=== PATIENT | female | born 1995 | race Caucasian/White ===

== ENCOUNTER 2018-02-16 19:38 | Emergency (ER) | payer MEDICAID, SELFPAY ==
[2018-02-16 19:39] VITALS: BP 148/87; PULSE 89; RESP 20; TEMP 37.1; O2SAT 97; BMI 24.9
[2018-02-16 19:44] VITALS: TEMP 37.1
[2018-02-16 19:50] VITALS: BP 129/85; PULSE 78; RESP 18; O2SAT 99
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
[2018-02-16] MEDS: fentaNYL 100 MCG/2 ML Ampul 50 MCG IV (20:05)
[2018-02-16] MEDS: Ondansetron 4 MG/2 ML Vial IV (20:05)
[2018-02-16 20:06] VITALS: BP 120/83; PULSE 52; RESP 12; O2SAT 100
[2018-02-16 20:09] VITALS: BP 120/83; PULSE 60; RESP 14; O2SAT 99
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
[2018-02-16 20:33] VITALS: BP 120/80; PULSE 60; RESP 14; O2SAT 99
== END 2018-02-16 20:30 | disposition short-term general hospital (02) ==
PROVIDERS: Emergency Provider Emergency Medicine; Family Provider Family Medicine; PCP Family Medicine
DX: S42.411A Displaced simple supracondylar fracture without intercondylar fracture of right humerus, initial encounter for closed fracture (principal); V59.9XXA Occupant (driver) (passenger) of pick-up truck or van injured in unspecified traffic accident, initial encounter; Y93.89 Activity, other specified; Y92.9 Unspecified place or not applicable
CPT/HCPCS: 71045; 72170; 73070; 73120; 96374; 96375; 99285; J7030; A4216; J2405

== ENCOUNTER → 2018-03-22 17:05 | Outpatient (CLI) | payer MEDICAID, SELFPAY ==
[2018-03-22 18:54] LABS: Chlamydia Trachomatis by PCR Negative (Negative); Neisserai gonorrhoeae by PCR Negative (Negative); Probe Check PASS; Sample Adequacy Control PASS; Specimen Processing Control PASS
[2018-03-27 17:17] LABS: HPV HC, High Risk Negative (Negative)
== END ==
PROVIDERS: Visit Provider Obstetrics & Gynecology
DX: Z12.4 Encounter for screening for malignant neoplasm of cervix (principal); Z11.3 Encounter for screening for infections with a predominantly sexual mode of transmission
CPT/HCPCS: 87491; 87591; 87624; 88175; G0145

== ENCOUNTER 2018-05-02 11:00 | Outpatient (RCR) | payer MEDICAID, SELFPAY ==
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
--- NOTE | 2018-08-07 13:57 | HP.PTDCSUM ---
HP - PT D/C Summary It has been my pleasure to treat NIKKI ALTAMIRANO under orders from ALISHA CARLISLE, for the diagnosis of CLOSED BICONDYLAR FRCTURE OF DISTAL END OF RIGHT HUMERUS WITH HEALING for a total of 7 visit(s). Discharge Date: Please see the following information for a summary of their discharge status. - Subjective Subjective: Pt reports that she can reach across her body, do her hair etc. - Pain Right Elbow Pain Intensity (Out of 10): Unrated - Overall Improvement % Improvement: 70 - Objective Objective/Function: Pt notes some functional improvement in use of right arm. Still very sensitive to touch over incision. Motion still very limited. 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 Thank you for the referral of this patient. Sincerely, Jhonatan Borges, PT, Cert MDT, OCS
== END 2018-05-02 19:00 | disposition home or self-care (01) ==
LOC: PT 11:00
PROVIDERS: Family Provider Family Medicine; PCP Family Medicine
DX: S42.491D Other displaced fracture of lower end of right humerus, subsequent encounter for fracture with routine healing (principal); M25.621 Stiffness of right elbow, not elsewhere classified
CPT/HCPCS: 97110; 97161

== ENCOUNTER 2018-08-06 11:11 | Emergency (ER) | payer MEDICAID, SELFPAY ==
[2018-08-06 11:12] VITALS: BP 135/79; PULSE 81; RESP 18; TEMP 37.2; O2SAT 99; BMI 27.4
--- NOTE | 2018-08-06 11:41 | ED.VISSUMM ---
- ER Visit Summary Date of Service: 08/06/18 Chief Complaint: Patient is presenting with dental pain. No fever chills no jaw pain this is chronic and recurrent secondary to a and P K2 that she cannot get into see a dentist. Physical Examination: She is found to have a left lower second molar decayed tooth no periapical abscess. No facial edema. Otherwise normal oropharynx with the soft palate. Emergency Department Course and Treatment: Patient was started on clindamycin and given the dental referral sheet. Disposition: Discharge stable condition Impression: Odontalgia This note was generated with [employer] dictation software. It may contain incorrect words, spelling, and punctuation that were not noted in review of the chart prior to signing ED Disposition - Plan for ED Patient: Disposition: Home or Assisted Living Chief Complaint: Dental Instructions: ED Tooth Pain, ED Abscess Dental Prescriptions: Clindamycin [Cleocin] 150 mg PO 4X/DAY #40 cap
--- NOTE | 2018-08-06 11:45 | ED.DCSUM_ITS ---
- ER Visit Summary Date of Service: 08/06/18 Chief Complaint: Patient is presenting with dental pain. No fever chills no jaw pain this is chronic and recurrent secondary to a and P K2 that she cannot get into see a dentist. Physical Examination: She is found to have a left lower second molar decayed tooth no periapical abscess. No facial edema. Otherwise normal oropharynx with the soft palate. Emergency Department Course and Treatment: Patient was started on clindamycin and given the dental referral sheet. Disposition: Discharge stable condition Impression: Odontalgia This note was generated with [employer] dictation software. It may contain incorrect words, spelling, and punctuation that were not noted in review of the chart prior to signing ED Disposition - Plan for ED Patient: Disposition: Home or Assisted Living Chief Complaint: Dental Instructions: ED Tooth Pain, ED Abscess Dental Prescriptions: Clindamycin [Cleocin] 150 mg PO 4X/DAY #40 cap
[2018-08-06] MEDS: Ketorolac 30 MG/ML Syringe IM (12:11)
== END 2018-08-06 12:25 | disposition home or self-care (01) ==
PROVIDERS: Emergency Provider Emergency Medicine; Family Provider Family Medicine; PCP Family Medicine
DX: K02.9 Dental caries, unspecified (principal); Z72.0 Tobacco use
CPT/HCPCS: 96372; 99281

== ENCOUNTER 2018-09-04 13:30 | Outpatient (RCR) | payer MEDICAID, SELFPAY ==
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
--- NOTE | 2018-12-31 11:19 | HP.PTDCNRP_ITS ---
HP - Discharge Summary (1) - Patient Information NIKKI ALTAMIRANO was seen in my office for initial evaluation on 08/27/18. The following Plan of Care was established for this patient: Initial Frequency: 2-3x /Week Initial Duration: 4-6 Weeks - Anticipated Interventions Patient/Client Instruction: Educate patient on: Condition, Plan of Care, Risk Factors, Benefits of Fitness Program For the Purpose of:: To foster healthy habits, To improve decision making, To facilitate caregiver knowledge, To improve self management, To prevent re- injury, To improve ability to perform tasks related to life management, To improve tolerance to ADL's Therapeutic Exercise to Include: Strength training, Power training, Body mechanics, Postural training, Flexibilty training, Passive ROM, Active ROM, Scapular Strength/Stabilization For the Purpose of:: To decrease pain, To decrease swelling/inflammation, To increase ROM, To improve health of tissue, To decrease soft tissue restriction, To increase flexibility/ROM Manual Therapy Techniques to Include: Mobilization, Passive ROM, Functional dry needling, Soft tissue mobilization For the Purpose of:: To decrease pain, To decrease swelling/inflammation, To increase ROM, To improve muscle performance and motor function, To improve health of tissue, To decrease soft tissue restriction, To increase flexibility/ROM IF ES: Yes Cryotherapy (ice pack, ice massage): Yes Thermo therapy (hot pack): Yes For the Purpose of:: To decrease pain, To decrease swelling/inflammation, To increase ROM This patient was last seen in our office 09/11/18. Pertinent comments regarding their Physical therapy will appear below: Pt. was seen for her elbow hypomobility. Pt. attended eval and 2 visits, but did not return afterwrads. Pt. was not been seen in several months and will be DC from PT at this point intime. At this point I will be discontinuing this patient from physical therapy. I would be happy to see this patient again in the future if found appropriate by the physician. Thank you! Kendrick Julian, FLAQUITOT
== END 2018-09-04 19:00 | disposition home or self-care (01) ==
LOC: PT 13:30
PROVIDERS: Family Provider Family Medicine; PCP Family Medicine
DX: S42.491D Other displaced fracture of lower end of right humerus, subsequent encounter for fracture with routine healing (principal)
CPT/HCPCS: 97110; 97140; 97161

== ENCOUNTER → 2018-10-16 09:27 | Outpatient (CLI) | payer MEDICAID, SELFPAY ==
--- NOTE | 2018-10-16 09:44 | CT_ITS ---
STUDY: CT RIGHT ELBOW WITHOUT CONTRAST REASON FOR EXAM: Female, 23 years old. Closed epicondylar fracture of the distal humerus. Surgery 7 months ago. Limited range of motion. RADIATION DOSAGE (If Supplied By Facility): CTDIvol = ( 24.58 ) mGy, DLP = ( 471.43 ) mGycm TECHNIQUE: Transaxial CT imaging of the elbow was performed. Sagittal and coronal images were reconstructed. Individualized dose optimization techniques were used for this CT. COMPARISON: X-ray elbow 02/16/2018. FINDINGS: Minimal residual elbow joint effusion. Proximal radius and ulna intact. Myotendinous structures traversing the elbow appear normal. Normal appearance of the ulnotrochlear articulation. No intra-articular loose body. There is a bridging new bone formation traversing from the posterior margin of the medial femoral condyle towards the lateral margin of the olecranon. The average bone measures approximately 2.5 cm in length followed by 2 bony ossicles measuring 6.3 mm and 7.6 mm respectively. Normal appearance of the radiocapitellar articulation. The anterior humeral line transects the anterior 3rd of the capitellum suggesting persistent posterior displacement secondary to the supracondylar fracture. Supracondylar plate and screw fixation. The surgical construct appears intact. There is complete fusion across the fracture. There is residual deformity of the supracondylar humerus secondary to periosteal new bone formation. CT/Extremity Upper without Contra IMPRESSION: Complete fusion across the supracondylar fracture. The surgical construct appears intact. No intra-articular loose body. There is a bridging new bone formation contiguous with corticated bony ossicles from the posterior medial margin of the medial femoral condyle downward along the medial margin of the olecranon, at the margin of the articulation, potentially limiting range of motion. Electronically Signed: Vlad Del Real MD at 11:15 EDT Tel , Service support ,
== END ==
PROVIDERS: Family Provider Family Medicine; PCP Family Medicine
DX: S42.491D Other displaced fracture of lower end of right humerus, subsequent encounter for fracture with routine healing (principal)
CPT/HCPCS: 73200

== ENCOUNTER 2019-01-23 18:30 | Outpatient (RCR) | payer MEDICAID, SELFPAY ==
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
--- NOTE | 2019-03-18 13:44 | HP.PTDCNRP_ITS ---
HP - Discharge Summary (1) - Patient Information NIKKI ALTAMIRANO was seen in my office for initial evaluation on 12/30/18. The following Plan of Care was established for this patient: Initial Frequency: 3x /Week Initial Duration: 4-6 Weeks - Anticipated Interventions Patient/Client Instruction: Educate patient on: Condition, Plan of Care For the Purpose of:: To increase ROM, To increase tolerance to activity/condit ion/position Therapeutic Exercise to Include: Strength training, Flexibilty training, Passive ROM, Active ROM For the Purpose of:: To decrease pain, To increase ROM, To increase tolerance to activity/condition/position Manual Therapy Techniques to Include: Scar massage, Mobilization For the Purpose of:: To decrease pain, To increase ROM Paraffin bath: Yes For the Purpose of:: To improve nutrient delivery to tissue This patient was last seen in our office 01/23/19. Pertinent comments regarding their Physical therapy will appear below: Pt seen for 5 visits of plan of care. She no showed for her last 4 scheduled visits including recheck. At this point, it has been nearly two months adn I will discontinue due to nonattendance. At this point I will be discontinuing this patient from physical therapy. I wou ld be happy to see this patient again in the future if found appropriate by the physician. Thank you! Zeus Bergman, DPT, OCS, CSCS
== END 2019-01-23 19:00 | disposition home or self-care (01) ==
LOC: PT 18:30
PROVIDERS: Family Provider Family Medicine; PCP Family Medicine
DX: M25.621 Stiffness of right elbow, not elsewhere classified (principal)
CPT/HCPCS: 97110; 97140; 97161; 97530

== ENCOUNTER → 2019-03-04 13:07 | Outpatient (CLI) | payer MEDICAID, SELFPAY ==
[2019-03-04 15:15] LABS: Progesterone Level 2.18 ng/mL (See Comment)
[2019-03-04 15:18] LABS: hCG Titer Quant., Serum < 1 mIU/mL (1-3)
== END ==
PROVIDERS: Visit Provider Obstetrics & Gynecology
DX: Z30.8 Encounter for other contraceptive management (principal)
CPT/HCPCS: 36415; 84144; 84702

== ENCOUNTER 2019-05-24 08:37 | Emergency (ER) | payer MEDICAID, SELFPAY ==
[2019-05-24 08:37] VITALS: BP 122/70; PULSE 88; RESP 20; TEMP 36.6; O2SAT 98; BMI 25.7
--- NOTE | 2019-05-24 09:02 | ED.VIS.DENTA ---
History of Present Illness Chief Complaint: Dental Informant: Patient Onset: Today - around 8-10 hrs Context: Gradual Onset Timing: Continuous Quality: ache Location: right mandibular molar Current Severity: Severe Maximum Severity: Severe Worsened by: eating, drinking Relieved by: - - hasn't tried anything Associated Symptoms: - - no fever, jaw/face swelling Narrative: Patient has decay and a right mandibular molar. She states it is look like this for a while but did not start hurting her until late last night/early this morning. No other symptoms other than pain. Prior similar symptoms: Yes Past Medical History - Allergies and Home Meds Allergies/Adverse Reactions: Allergies hydrocodone [From Vicodin] Allergy (Verified 05/24/19 08:39) Other Primary Care Physician: NOT,DEFINED [Primary Care Provider] - Past Medical History: None Smoking Status: Current every day smoker Drugs: None Review of Systems General: Denies: Chills, Fever ENT: Reports: - - dental pain. Denies: Bilateral ear pain, Rhinorrhea, Sore throat Gastrointestinal: Denies: Nausea, Vomiting Skin: Denies: Rash, Abscess Neurological: Denies: Headache, Weakness, Numbness Physical Exam Vital Signs/Narrative: Vital Signs Temp Pulse Resp BP Pulse Ox 05/24/19 08:37 98 F 88 20 H 122/70 H 98 Inital Vital Signs reviewed: Yes General: Well nourished, Well developed Head: Normocephalic, Atraumatic ENT: Moist mucous membranes, No rhinorrhea, TM's clear Mouth/Throat: Focal dental decay - tooth #35 -- filling intact, lateral half of tooth is missing due to severe decay down to gumline. no bleeding or discharge. tender. no nearby soft tissue abscess. no trismus.. Negative for: Dental abscess Neck: Supple, No lymphadenopathy. Negative for: Anterior submandibular lymphadenopathy Skin: Normal color, No rash, No Trauma Neurological: Alert, Oriented x3, Cranial nerves II-XII grossly intact, Normal Strength, Normal Sensation, Normal Gait Psychological: Normal affect, Normal Mood Diagnostic/Tx/Re-eval - Medical Decision Making Patient given Ultram and ibuprofen and given a prescription for Ultram and amoxicillin. She was given a dental resource list for follow-up. No objective sign of infection at this time. ED Disposition - Plan for ED Patient: Disposition: Home or Assisted Living Diagnosis: Odontalgia, Dental decay Instructions: Dental Pain, Dental Cavity Prescriptions: Amoxicillin 875 mg PO BID #20 tab Prescription Printed traMADol [Ultram] 50 mg PO Q4H PRN PRN 3 Days #16 tab PRN Reason: Pain Prescription Printed Referrals: Dentist,Your [STAFF PHYSICIAN] - As soon as possible (see resource list for providers if you do not already have one)
[2019-05-24] MEDS: Ibuprofen 600 MG Tablet PO (09:17)
[2019-05-24] MEDS: traMADol 50 MG Tablet 100 MG PO (09:18)
== END 2019-05-24 09:20 | disposition home or self-care (01) ==
LOC: ED 09:10
PROVIDERS: Emergency Provider Emergency Medicine
DX: K02.9 Dental caries, unspecified (principal); F17.200 Nicotine dependence, unspecified, uncomplicated
CPT/HCPCS: 99283

== ENCOUNTER 2019-09-11 12:23 | Emergency (ER) | payer MEDICAID, SELFPAY ==
[2019-09-11 12:25] VITALS: BP 129/73; PULSE 78; RESP 17; TEMP 37.1; O2SAT 100; BMI 27.9
--- NOTE | 2019-09-11 12:37 | RAD_ITS ---
STUDY: X-RAY CHEST REASON FOR EXAM: Female, 24 years old. Stabbing pain in right lower chest/abdomen. TECHNIQUE: Frontal and lateral views of the chest. COMPARISON: February 16, 2018 FINDINGS: Stable mild hyperexpansion. There is no demonstrated pleural abnormality. Normal size heart. Normal mediastinum and calos. Normal visualized pulmonary arteries. Normal visualized aortic arch and descending thoracic aorta. Normal visualized thoracic spine. Normal visualized ribs, clavicles, and shoulders. Stable nipple piercings. RAD/Chest PA and Lateral IMPRESSION: No interval change and no acute finding. Electronically Signed: Yayo Segura MD at 13:06 EST , Service support ,
--- NOTE | 2019-09-11 12:38 | ED.DCSUM_ITS ---
History of Present Illness Chief Complaint: Other, Pain/Inj Informant: Patient Onset: Weeks Narrative: Patient presents the emergency department with a right lower chest wall pain. She states is been present for 2 weeks constant and seems to be getting worse. She notes a cough that is also been worsening. Pain is worse with movement and touch. She denies any vomiting diarrhea anorexia or rash. She notes no dysuria but does endorse urinary frequency. No fevers. No known trauma. Known strenuous activity. She states she felt there is most likely a musculoskeletal pain but it has not gone away. She is tried some ibuprofen and heat. She states that she has not contacted her PCP. The reason for her ED visit today is that she was unable to sleep last night due to the pain. Past Medical History - Allergies and Home Meds Allergies/Adverse Reactions: Allergies hydrocodone [From Vicodin] Allergy (Verified 09/11/19 12:25) Other Primary Care Physician: Aysha Latif NP-C [Primary Care Provider] - Smoking Status: Current every day smoker Review of Systems General: Denies: Chills, Fever, Sweats Eyes: Denies: Visual changes - bilaterally, Diplopia ENT: Denies: Rhinorrhea, Sore throat Cardiovascular: Reports: Chest pain. Denies: Palpitations Respiratory: Reports: Cough. Denies: Dyspnea, Dyspnea on exertion Gastrointestinal: Denies: Abdominal pain, Nausea, Vomiting, Diarrhea, Melena, Hematochezia Genitourinary: Reports: Frequency. Denies: Dysuria, Hematuria Musculoskeletal: Denies: Back pain, Extremity Pain Skin: Denies: Rash, Wounds Neurological: Denies: Headache, Weakness, Numbness Physical Exam Vital Signs/Narrative: Vital Signs Temp Pulse Resp BP Pulse Ox 09/11/19 12:25 98.7 F 78 17 129/73 H 100 Inital Vital Signs reviewed: Yes General: Well nourished, Well developed, No Acute Distress Head: Normocephalic, Atraumatic Eyes: Perrl, EOMI ENT: Moist mucous membranes, No rhinorrhea Neck: Supple, Nontender Cardiovascular: Regular rate, Regular rhythm, No murmurs Respiratory: No distress, CTA bilaterally, Chest tenderness - Right lower anterior chest wall tenderness extending towards the mid axillary line. Specifically there are no rashes in this area no posterior rib pain Abdomen: Soft, Nontender, Nondistended, Normal bowel sounds Back: Nontender, Normal Inspection Extremities: Nontender, No edema Skin: Normal color, No rash Neurological: Alert, Oriented x3, Cranial nerves II-XII grossly intact, Normal Strength, Normal Sensation Psychological: Normal affect, Normal Mood Diagnostic/Tx/Re-eval - Medical Decision Making X-ray showed no pneumothorax pleural effusion infiltrate to explain the patient's pain. Ribs did not appear to demonstrate any trauma. Her urine specimen was normal. I believe this is musculoskeletal. It is easily reproducible with palpation and with certain movements. Patient to use some Flexeril and continued anti-inflammatories. Follow-up with primary care if not improved ED Disposition - Plan for ED Patient: Disposition: Home or Assisted Living Diagnosis: Acute chest wall pain Instructions: Chest Wall Strain Prescriptions: cycloBENZAPRine HCl [Flexeril] 10 mg PO TID PRN #15 tab PRN Reason: Muscle Spasm Prescription Printed Naproxen [Naprosyn] 500 mg PO BID #14 tab Prescription Printed Referrals: yAsha Latif, DIRECTOR OF STUDENT FINANCIAL SERVICES-C [Primary Care Provider] - 1 Week if not improving
[2019-09-11 13:02] LABS: Mucous, Urine 0 SEEN /hpf (<or=2+); Red Blood Cells-Urine 0 SEEN /hpf (0-5); White Blood Cells 0 SEEN /hpf (0-5)
[2019-09-11 13:13] LABS: Color, Urine Yellow (Yellow); Glucose, Dipstick Normal (Normal); Internal QC Validated? YES +Cl - CLEAR BKGD; Ketone-Dipstick Negative (Negative); Leukocyte Esterase-Dipstick Negative /ul (Negative); Nitrite-Dipstick Negative (Negative); Occult Blood-Urine Negative /ul (Negative); Pregnancy, Urine Negative Negative; Protein-Dipstick Negative (Negative); Specific Gravity, Urine 1.015 (1.002-1.030); Urine Bilirubin Dipstick Negative (Negative); Urine Clarity Sl. Cloudy (Clear); Urine Urobilinogen Normal (Normal)
[2019-09-11 13:22] LABS: Amorphous Sediment 1+; Bacteria 1+ /hpf (None Seen); Squamous Epithelial Cells - UA 0-5 SEEN /hpf (5-10)
[2019-09-11 14:00] VITALS: PULSE 81; RESP 18; O2SAT 100
== END 2019-09-11 14:01 | disposition home or self-care (01) ==
PROVIDERS: Emergency Provider Emergency Medicine; PCP Nurse Practitioner Family
DX: R07.89 Other chest pain (principal); F17.200 Nicotine dependence, unspecified, uncomplicated
CPT/HCPCS: 71046; 81001; 81025; 99283

== ENCOUNTER → 2020-01-16 13:47 | Outpatient (CLI) | payer MEDICAID, SELFPAY ==
[2020-01-16 17:14] LABS: Chlamydia Trachomatis by PCR Negative (Negative); Neisserai gonorrhoeae by PCR Negative (Negative); Probe Check PASS; Sample Adequacy Control PASS; Specimen Processing Control PASS
[2020-01-21 20:45] LABS: HPV APTIMA, High Risk Positive (Negative); HPV Reflexed? YES, CHARGE PATIENT
== END ==
PROVIDERS: PCP Nurse Practitioner Family; Visit Provider Obstetrics & Gynecology
DX: Z12.4 Encounter for screening for malignant neoplasm of cervix (principal); Z11.3 Encounter for screening for infections with a predominantly sexual mode of transmission
CPT/HCPCS: 87491; 87591; 87624; 88175; G0145

== ENCOUNTER 2020-01-21 07:41 | Day surgery (SDC) | payer MEDICAID, SELFPAY ==
--- NOTE | 2020-01-20 22:55 | HP.PCM_ITS ---
History and Physical Date of Admission: 01/21/20 HISTORY OF PRESENT ILLNESS: On 01/19/2020, Elvia Reed, a 24 year old female 2 0 0 0 2, presented for: -- Inevitable Miscarriage -- U/S shows 8w 3 day IUP without FHTs. Denies any vaginal bleeding. Wants a D and E GUERRERO. Also wants tubal or IUD. ALLERGIES: NKDA MEDICATIONS HISTORY: Current medications prescribed by our practice are: 1. promethazine 12.5 mg tablet, As Directed REVIEW OF SYSTEMS: GENERAL - Denies fever, or chills SKIN - Denies skin changes EYES - Denies visual changes EARS - Denies difficulty hearing NOSE - Denies nasal congestion or bleeding MOUTH - Denies sore throat or difficulty swallowing NECK - Denies pain or swelling RESPIRATORY - Denies shortness of breath or wheezing CARDIOVASCULAR - Denies palpitations or chest pain GASTROINTESTINAL - Denies nausea, vomiting, diarrhea, constipation GENITOURINARY - Denies dysuria, frequency of urination, incontinence of urine MUSCULOSKELETAL - Denies joint or muscle pain NEUROLOGICAL - Denies localized numbness or weakness PSYCHIATRIC - Denies depression or anxiety ENDOCRINE - Denies heat or cold intolerance, weight loss or gain HEMATO-IMMUNOLOGIC - Denies excesive bleeding with cuts PAST HISTORY: Breast/Ovarian/Colon Cancers - Denies Infections - Chicken pox and Measles Illnesses - ADD, Strep Throat, Accidents - None History of Abnormal PAPS - first noted 2-5 years ago-- YES Hospitalizations - Childbirth and see surgery SURGICAL HISTORY: 1. 08/30/2013 T and A 2. 11/2018 @nd (R) Elbow Surgery 3. R elbow repair from A/A 03/16 4. [place] Teeth Extraction 06/09 5. 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 MENSTRUAL HISTORY: LMP Known?- Approximate-Month KnownAmount/Duration - 4 days, LMP - 11/26/19, Age Onset Menarche - 12 PAST PREGNANCIES: Total Pregnancies - 3; Full Term Pregnancies - 2; Premature - 0; Abortions, I nduced - 0; Abortions, Spontaneous - 0; Ectopics - 0; Multiple Births - 0; Living Children - 2 FAMILY HISTORY: Mother - FH: Malignant neoplasm of cervix uteri; Aunt - Malignant tumor of cervix; SOCIAL HISTORY: Alcohol Use - denies drinking Smoking - 1/2 pack/day--advised to quit Diet - no special diet Lifestyle - moderate stress lifestyle and single Exercise - minimal Seat Belt Use - always 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 01/2016 Control - PHYSICAL EXAM BP Systolic: 140 Weight: 159 Chief Complaint: US done prior to visit. Nonviable at 8weeks and 3 days. CONSTITUTIONAL - NAD, well nourished, and well developed NEUROLOGICAL - Cranial nerves II-XII grossly intact PSYCHIATRIC - A and O to time, place, person, mood and affect ASSESSMENT: 1. Spon Abort [employer] PLAN BY DIAGNOSIS: 1. Spon Abort [employer] Discussed miscarriage at length along with treatment options. Pt desires proceeding with Suction D and E. Discussed RBAs and all questions answered. Considering tubal vs IUD and federal consent signed today. Kal pamphlet given. Procedure Criteria Procedure Type: Elective COVID Risk Discussion: The surgeon/proceduralist and patient have discussed in detail the risk of exposure to and/or potential harm posed by the COVID-19 virus with having a surgery/procedure at this time versus the risk of delaying the surgery/procedure. It is not possible to know either the risk of delaying the surgery or procedure or chance of getting an infection with perfect accuracy, but a joint decision was made between the patient and the surgeon/proceduralist to proceed at this time with the scheduled surgery/procedure as indicated on the consent form.
[2020-01-21] VITALS (10 sets, daily range): BP systolic 82–128; BP diastolic 65–93; PULSE 50–78; RESP 16–20; TEMP 36.4–36.8; O2SAT 98–100; BMI 28.6
--- NOTE | 2020-01-21 | POC_PTH ---
PATIENT: MARY BEAR LOC: [facility] [place] U#:[id number] AGE/SX: 24/F ROOM: RE01/21/[address]: Dr. Conrado Maddox MD : 1995 BED: DIS: 01/21/2020 SPEC #: [id number] RECD: 01/21/20 10:56 STATUS: GEETHA REObinna #: [id number] NOÉ: 01/21/20 00:[address]: Conrado Maddox DEPT: SURGICAL PATHOLOGY RECD BY: Jared Mari ENTERED: 01/21/20 10:57 SP TYPE: PROD CONC OTHR DR: Aysha Latif, PLANT HEALTH MANAGER-C Tissues: Product of conception, NOS Procedures: Surgery Specimen Level IV HEADER OPERATION: Suction D & C PRE-OP DIAGNOSIS: Missed TISSUE SUBMITTED: Products of conception MICROSCOPIC DIAGNOSIS Products of conception: [place], gestational endometrium and immature chorionic villi (products of conception). SJ:boris 6/25/20 MICROSCOPIC DESCRIPTION Slides are reviewed. GROSS DESCRIPTION Received in fixative is one container labeled with the patient's name and designated products of conception. The specimen consists of multiple fragments of hemorrhagic soft tissue that in aggregate measure 7 x 6 x 2 cm. tissue is not identified. Boarding House Manager tissue is submitted in two cassettes. / SJ:boris 01/21/20 TC:5 CPT: 24993
[2020-01-21 08:12] LABS: Hematocrit 38.7 % (37-47); Hemoglobin 13.1 g/dL (12.0-15.0); Mean Corp Hgb Conc 33.9 g/dL (32-36); Mean Corpuscular Volume 94.6 fL (81-99); Mean Platelet Vol. 10.1 fl (6.2-12.0); Platelet Count 320 K/mm3 (150-450); RBC Distribution Width CV 12.2 % (11.6-14.6); RBC Distribution Width SD 42.5 fl (35.1-43.9); Red Blood Count 4.09 M/mm3 (4.2-5.4); White Blood Count 6.4 K/mm3 (4.4-11.0)
[2020-01-21] MEDS: Lactated Ringers 1,000 ML 100 ML IV (08:23)
[2020-01-21 08:46] LABS: International Normalized Ratio 1.1; Prothrombin Time (Protime)PT. 13.5 SECONDS (11.7-14.9)
[2020-01-21 08:47] LABS: Partial Thromboplast Time 28.8 Seconds (24.1-36.2)
--- NOTE | 2020-01-21 09:09 | PCM.OPRPT ---
Report of Operation Date of Procedure: 01/21/20 Pre-Operative Diagnosis: Inevitable Miscarriage Post-Operative Diagnosis: Inevitable Miscarriage Surgery/Procedure Performed:: Suction Dilation and Evacuation Description of Surgical Findings:: 8 cm endometrial cavity with products of conception Type of Anesthesia:: MAC Anesthesiologist: Nevaeh Rosenbaum Specimen's removed: Products of conception Estimated Blood Loss (mL): Normal Fluids Replaced: Crystalloid Description of Procedure: Surgeon: Conrado Maddox MD, FACOG Indication: 24 year patient with incomplete AB at 8 weeks gestation with a 8 week IUP without FHTs. Pt has been counseled regarding the risks, benefits, and alternatives of this procedure and all questions were answered. Procedure: Patient was taken to the operating room where she was given IV sedation. The patient was prepped and draped in the usual sterile fashion. The anterior cervix was grasped with a tenaculum and cervix was dilated. An 9 mm suction curette was inserted into the cervix and all contents removed. Uterus was gently curetted and remaining tissue was removed by reinserting the suction curette. The patient tolerated the procedure well and was taken to the recovery room in satisfactory condition. Sponge, instruments and needle counts were all correct. There were no apparent complications of the surgery. Grafts/Implants Used: None - Complications None - Admit VTE Documentation VTE Present on Admission: Yes VTE Mechan Device Prophylaxis: SCD's
--- NOTE | 2020-01-21 09:12 | DCINST_ITS ---
Discharge Diet: No Restrictions Discharge Activity: Return to Normal Activity, May Shower, May Take a Tub Bath May resume sexual activity in: 2 weeks Call your doctor if you observe: Fever of 101 or Higher, Inability to urinate, Inability to have a bowel movement, Using more than one pad per hour Allergies/Adverse Reactions: Allergies hydrocodone [From Vicodin] Allergy (Verified 01/21/20 08:11) Other Medications to take at Discharge NK 01/20/20 Primary Care Physician: Aysha Latif NP-C [Primary Care Provider] - Test Results: Test results from this visit will be discussed in further detail at your follow- up appointment, if applicable. Please Follow Up With: Conrado Maddox MD When: 2-3 weeks
[2020-01-21 09:16] LABS: Probe Check PASS; Specimen Processing Control PASS
[2020-01-21] MEDS: Lubricating Jelly 60 GM Tube 30 GM TOPICAL (09:25)
== END 2020-01-21 11:05 | disposition home or self-care (01) ==
LOC: SDC 07:42 → AC 07:43
PROVIDERS: Anesthesiology; PCP Nurse Practitioner Family; Referring Provider Obstetrics & Gynecology; Visit Provider Obstetrics & Gynecology
PROC: (CPT 59812; principal; 2020-01-21 09:35)
DX: O03.4 Incomplete spontaneous abortion without complication (principal); Z11.59 Encounter for screening for other viral diseases; F17.200 Nicotine dependence, unspecified, uncomplicated
CPT/HCPCS: 01965; 59812; 36415; 85027; 85610; 85730; 86850; 86900; 86901; 87635; 88305; G2023; J7120; J2405; U0003

== ENCOUNTER → 2020-02-23 | Outpatient (CLI) | payer MEDICAID, SELFPAY ==
[2020-01-21 08:14] VITALS: BMI 28.6
--- NOTE | 2020-02-23 | IMM_PTH ---
PATIENT: MARY BEAR LOC: [facility] U#:[id number] AGE/SX: 24/F ROOM: RE02/23/[address]: Dr. Conrado Maddox MD : 1995 BED: DIS: 02/23/2020 SPEC #: [id number] RECD: 02/25/20 14:43 STATUS: GEETHA REQ #: [id number] NOÉ: 02/23/20 00:[address]: Conrado Maddox DEPT: IMMUNOHISTOCHEMISTRY RECD BY: Sophia Gupta ENTERED: 02/25/20 14:44 SP TYPE: IMMUNO OTHR DR: Aysha Latif, FASHION EDITOR-C Tissues: A - Uterine cervix, NOS Procedures: p16 (initial) KI-67 (add) PHYSICIAN & [place] [phone] SPECIMEN INFORMATION: Tissue Source: A - Four quadrant cervical biopsy Clinical Info: Positive HPV Specimen Number: [id number] CPT code: 62111, 59340 METHODOLOGY: Deparaffinized sections of prefer/formalin-fixed tissue or PAP/DQ stained slides are incubated with monoclonal/polyclonal antibodies/oligonucleotide probes. Localization is made via biotin free immunoperoxidase method. Appropriate controls are performed and reacted as expected. Results on target cell population are indicated in the following table: RESULTS: ANTIBODY / CLONE RESULT Block A P16 (E6H4) negative Ki-67 (30-9) negative These tests were developed and their performance characteristics determined by [facility]. They may not have been cleared or approved by the U.S. Food and Drug Administration. The FDA has determined that such clearance or approval is not necessary. The above immunohistochemical/dualISH markers are ordered and reviewed by the Pathologist. INTERPRETATION: A. Four quadrant cervical biopsy: Negative for dysplasia. TYLER:boris 02/26/20
--- NOTE | 2020-02-23 14:45 | CER_PTH ---
PATIENT: MARY BEAR LOC: [facility] U#:[id number] AGE/SX: 24/F ROOM: RE02/23/[address]: Dr. Conrado Maddox MD : 1995 BED: DIS: 02/23/2020 SPEC #: [id number] RECD: 02/23/20 15:43 STATUS: GEETHA BECKY #: [id number] NOÉ: 02/23/20 14:[address]: Conrado Maddox DEPT: SURGICAL PATHOLOGY RECD BY: Sophia Gupta ENTERED: 02/24/20 14:15 SP TYPE: CERV OTHR DR: Aysha Latif, JACK TAMP OPERATOR-C Tissues: A - Uterine cervix, NOS B - Endocervical Procedures: Surgery Specimen Level IV HEADER OPERATION: Colposcopy PRE-OP DIAGNOSIS: Positive HPV R87.810 TISSUE SUBMITTED: A - Four quadrant cervical biopsy, B - ECC MICROSCOPIC DIAGNOSIS A. Cervix, four-quadrant biopsy: Fragments of benign squamous epithelium and squamous mucosa, no pathologic diagnosis. Negative for dysplasia. B. ECC: Fragments of benign ecto- and endocervical epithelium, negative for dysplasia. SJ:boris 02/25/20 COMMENT A. Imunohistochemistry ([id number]) supports the above diagnosis. Transitional zone mucosa is not present in the specimen. 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 Case has been reviewed in consultation with Dr. Ortiz who concurs with the above diagnosis. IDC:AM MICROSCOPIC DESCRIPTION Slides are reviewed. GROSS DESCRIPTION A - Received in fixative is one container labeled with the patient's name and designated four quadrant cervix. The specimen consists of multiple irregular fragments of light dobbs soft tissue that in aggregate measure 0.8 x 0.5 x 0.1 cm. The specimen is totally submitted in one cassette. B - Received in fixative is one container labeled with the patient's name and designated ECC. The specimen consists of a scant amount of soft tissue. The specimen is totally submitted for cell block preparation. / TYLER:boris 02/24/20 TC:4 CPT: 57868 x2
== END | disposition home or self-care (01) ==
LOC: LABSPEC 15:49
PROVIDERS: PCP Nurse Practitioner Family; Referring Provider Obstetrics & Gynecology; Visit Provider Obstetrics & Gynecology
DX: R87.810 Cervical high risk human papillomavirus (HPV) DNA test positive (principal)
CPT/HCPCS: 88305; 88341; 88342

== ENCOUNTER → 2020-03-11 | Outpatient (CLI) | payer MEDICAID, SELFPAY ==
[2020-01-21 08:14] VITALS: BMI 28.6
== END | disposition home or self-care (01) ==
LOC: LABSPEC 13:06
PROVIDERS: PCP Nurse Practitioner Family; Referring Provider Obstetrics & Gynecology; Visit Provider Obstetrics & Gynecology
DX: R30.0 Dysuria (principal)
CPT/HCPCS: 87086; 87088

== ENCOUNTER → 2021-03-29 | Outpatient (CLI) | payer MEDICAID, SELFPAY ==
[2021-04-09 21:12] LABS: HPV Reflexed? YES, CHARGE PATIENT
== END | disposition home or self-care (01) ==
LOC: LABSPEC 03-30 09:23
PROVIDERS: Visit Provider Obstetrics & Gynecology
DX: Z12.4 Encounter for screening for malignant neoplasm of cervix (principal)
CPT/HCPCS: 87624; 88175; G0145

== ENCOUNTER → 2021-12-13 | Outpatient (CLI) | payer MEDICAID, SELFPAY ==
[2021-12-15 22:07] LABS: Chlamydia By Nucleic Acid AMP Negative (Negative)
[2021-12-16 11:17] LABS: Gonococcus By Nucleic Acid AMP Negative (Negative)
== END | disposition home or self-care (01) ==
LOC: LABSPEC 15:56
PROVIDERS: Visit Provider Obstetrics & Gynecology
DX: Z11.3 Encounter for screening for infections with a predominantly sexual mode of transmission (principal)
CPT/HCPCS: 87491; 87591

== ENCOUNTER → 2022-01-10 | Outpatient (CLI) | payer MEDICAID, SELFPAY ==
[2022-01-10 15:39] LABS: Absolute Neutrophil Count 5.9 X10^3/uL (2.0-7.7); Basophil# 0.02 X10^3/uL; Basophil% 0.2 % (0-1); Eosinophil# 0.06 X10^3/uL; Eosinophils% 0.7 % (0-5); Hematocrit 34.3 % (37-47); Hemoglobin 11.9 g/dL (12.0-15.0); Lymphocyte % 23.6 % (19-41); Mean Corp Hgb Conc 34.7 g/dL (32-36); Mean Corpuscular Hgb 31.8 pg (27.0-32.0); Mean Corpuscular Volume 91.7 fL (81-99); Mean Platelet Vol. 10.2 fl (6.2-12.0); Monocyte# 0.52 X10^3/uL; Monocyte% 6.1 % (0-10); NRBC Flagged by Analyzer 0 % (0-5); Neutrophil # 5.87 X10^3/uL (2.7-7.7); Neutrophil % 69.2 % (47-70); Platelet Count 335 K/mm3 (150-450); RBC Distribution Width CV 11.7 % (11.6-14.6); RBC Distribution Width SD 39.3 fl (35.1-43.9); Red Blood Count 3.74 M/mm3 (4.2-5.4); White Blood Count 8.5 K/mm3 (4.4-11.0)
[2022-01-10 15:47] LABS: Protein, Urine (Random) 8.4 mg/dL (<11.9); Protein:Creat Ratio 127 mg/g CRE (0-200)
[2022-01-10 16:24] LABS: ALB/GLOB Ratio 0.9 RATIO (0.9-2.4); AST(SGOT) 16 U/L (15-37); Alanine Aminotransfer ALT/SGPT 22 U/L (13-56); Albumin, Serum 3.1 g/dL (3.2-5.0); Alkaline Phosphatase 85 U/L (45-117); Anion Gap 6 (5-15); BUN 6 mg/dL (7-18); BUN/Creat Ratio 14.6 RATIO (10-20); Calcium,Total 8.6 mg/dL (8.5-10.1); Chloride 106 mmol/L (98-107); Creatinine, Serum 0.41 mg/dL (0.55-1.02); EST Glomerular Filtration Rate 197 mL/min (>60); Est Glom Filt Rate - Afr Amer 238 mL/min (>60); Globulin 3.5 g/dL (2.2-4.2); Glucose 76 mg/dL (74-106); Potassium 3.4 mmol/L (3.5-5.1); Protein, Total 6.6 g/dL (6.4-8.2); Sodium Level 136 mmol/L (136-145)
[2022-01-10 17:08] LABS: HIV - WCH Non-Reactive (Nonreactive); Hepatitis B Surface Antigen Non-Reactive (Nonreactive); Hepatitis C Antibody Non-Reactive (Nonreactive); Rubella IgG Reactive (Nonreactive); Syphilis Antibodies Non-reactive
== END | disposition home or self-care (01) ==
PROVIDERS: Visit Provider Obstetrics & Gynecology
DX: Z34.81 Encounter for supervision of other normal pregnancy, first trimester (principal); Z87.59 Personal history of other complications of pregnancy, childbirth and the puerperium
CPT/HCPCS: 36415; 80053; 82570; 84156; 85025; 86703; 86762; 86780; 86803; 87086; 87088; 87340

== ENCOUNTER → 2022-04-11 | Outpatient (CLI) | payer MEDICAID, SELFPAY ==
[2022-04-11 12:13] LABS: Absolute Lymphocyte Count 1.57 X10^3/uL (0.83-4.51); Basophil# 0.04 X10^3/uL; Basophil% 0.4 % (0-1); Eosinophil# 0.08 X10^3/uL; Eosinophils% 0.8 % (0-5); Hematocrit 34.5 % (37-47); Hemoglobin 11.9 g/dL (12.0-15.0); Lymphocyte # 1.57 X10^3/ul (0.83-4.51); Mean Corp Hgb Conc 34.5 g/dL (32-36); Mean Corpuscular Hgb 32.6 pg (27.0-32.0); Mean Corpuscular Volume 94.5 fL (81-99); Mean Platelet Vol. 10.3 fl (6.2-12.0); Monocyte# 0.64 X10^3/uL; Monocyte% 6.1 % (0-10); NRBC Flagged by Analyzer 0 % (0-5); Neutrophil # 8.04 X10^3/uL (2.7-7.7); Platelet Count 349 K/mm3 (150-450); RBC Distribution Width CV 12.3 % (11.6-14.6); RBC Distribution Width SD 42.5 fl (35.1-43.9); Red Blood Count 3.65 M/mm3 (4.2-5.4); White Blood Count 10.4 K/mm3 (4.4-11.0)
[2022-04-11 12:21] LABS: Protein, Urine (Random) 6.1 mg/dL (<11.9); Protein:Creat Ratio 141 mg/g CRE (0-200)
[2022-04-11 12:52] LABS: ALB/GLOB Ratio 0.7 RATIO (0.9-2.4); AST(SGOT) 12 U/L (15-37); Alanine Aminotransfer ALT/SGPT 14 U/L (13-56); Albumin, Serum 2.9 g/dL (3.2-5.0); Alkaline Phosphatase 100 U/L (45-117); Anion Gap 8 (5-15); BUN 6 mg/dL (7-18); BUN/Creat Ratio 12.5 RATIO (10-20); Calcium,Total 8.9 mg/dL (8.5-10.1); Chloride 106 mmol/L (98-107); Creatinine, Serum 0.48 mg/dL (0.55-1.02); EST Glomerular Filtration Rate 163 mL/min (>60); Est Glom Filt Rate - Afr Amer 198 mL/min (>60); Globulin 4.1 g/dL (2.2-4.2); Glucose 85 mg/dL (74-106); Glucose Challenge Gest 1H 50g 85 mg/dL (70-140); LDH 156 U/L (84-246); Potassium 3.7 mmol/L (3.5-5.1); Sodium Level 139 mmol/L (136-145)
== END | disposition home or self-care (01) ==
LOC: WOBLAB 11:52
PROVIDERS: Visit Provider Obstetrics & Gynecology
DX: O13.9 Gestational [pregnancy-induced] hypertension without significant proteinuria, unspecified trimester (principal); Z3A.00 Weeks of gestation of pregnancy not specified
CPT/HCPCS: 36415; 80053; 82570; 82950; 83615; 84156; 85025; 87086; 87088

== ENCOUNTER 2022-05-11 13:10 | Outpatient (CLI) | payer MEDICAID, SELFPAY ==
[2022-05-11] VITALS (9 sets, daily range): BP systolic 110–135; BP diastolic 56–64; PULSE 70–80; TEMP 36.7; O2SAT 97; BMI 33.3
--- NOTE | 2022-05-11 13:57 | EKGRS_ITS ---
Test Reason : PALPS Blood Pressure : / mmHG Vent. Rate : 065 BPM Atrial Rate : 065 BPM P-R Int : 156 ms QRS Dur : 102 ms QT Int : 408 ms P-R-T Axes : 032 062 051 degrees QTc Int : 424 ms Normal sinus rhythm Normal ECG Confirmed by VIVEK JIANG, CONNOR ([id number]), video editor ADELAIDE CUMMINGS ([id number]) on 05/16/2022 11:05:38 AM Referred By: KATIE Confirmed By:CONNOR DOYLE MD
[2022-05-11 14:17] LABS: Hematocrit 32.1 % (37-47); Hemoglobin 11.2 g/dL (12.0-15.0); Mean Corp Hgb Conc 34.9 g/dL (32-36); Mean Corpuscular Hgb 32.7 pg (27.0-32.0); Mean Corpuscular Volume 93.6 fL (81-99); Mean Platelet Vol. 10.1 fl (6.2-12.0); Platelet Count 327 K/mm3 (150-450); RBC Distribution Width CV 11.9 % (11.6-14.6); RBC Distribution Width SD 40.8 fl (35.1-43.9); Red Blood Count 3.43 M/mm3 (4.2-5.4); White Blood Count 9.8 K/mm3 (4.4-11.0)
[2022-05-11 14:44] LABS: ALB/GLOB Ratio 0.7 RATIO (0.9-2.4); AST(SGOT) 19 U/L (15-37); Alanine Aminotransfer ALT/SGPT 20 U/L (13-56); Albumin, Serum 2.7 g/dL (3.2-5.0); Alkaline Phosphatase 97 U/L (45-117); Anion Gap 8 (5-15); BUN 7 mg/dL (7-18); BUN/Creat Ratio 15.3 RATIO (10-20); Calcium,Total 8.8 mg/dL (8.5-10.1); Chloride 109 mmol/L (98-107); Creatinine, Serum 0.46 mg/dL (0.55-1.02); EST Glomerular Filtration Rate 172 mL/min (>60); Est Glom Filt Rate - Afr Amer 209 mL/min (>60); Estimated Creatinine Clearance 158.63 ml/min; Glucose 81 mg/dL (74-106); LDH 170 U/L (84-246); Potassium 3.4 mmol/L (3.5-5.1); Protein, Total 6.7 g/dL (6.4-8.2); Sodium Level 138 mmol/L (136-145)
--- NOTE | 2022-05-11 17:54 | OB.TRI.NOTE ---
HPI - General General Date of Admission: 05/11/22 HPI Narrative MARY GEORGE BEAR, is a 26 F who presents with decreased movement and elevated blood pressures at home, heart fluttering PFSH PFSH Medical History Anxiety Arthritis Depression History of IBS Marijuana use Restless legs Smoker Home Medications levothyroxine 100 mcg tablet (Synthroid) 100 mcg PO BID 05/11/22 [History Last Taken 05/11/22 05:30] Allergy/AdvReac Type Severity Reaction Status Date / Time hydrocodone [From Vicodin] Allergy chest pain Verified 05/11/22 13:33 Surgical History (Updated 06/27/21 @ 08:53 by Myra Oro) History of D&C History of elbow surgery History of tonsillectomy History of wisdom tooth extraction Social History Smoking Status: Current every day smoker tobacco type: e-cigarettes NST FHR Rate Baby A Baseline: 120 Variability:: Moderate Accelerations:: 15 x 15 Decelerations:: None NST Reactive:: Yes Uterine Activity:: Quiet Assessment & Plan (1) : PLAN: Patient with decreased movement, reactive NST now feeling baby move. All reassuring. Elevated BPs at home, otherwise asymptomatic. HELLP Labs within normal limits, blood pressure within normal limits. Reassuring. Patient with heart fluttering, vital signs stable EKG normal sinus. Okay to discharge home and follow-up scheduled appointments
== END 2022-05-11 15:11 | disposition home or self-care (01) ==
LOC: WPOUT 13:21 → WP 13:21
PROVIDERS: Visit Provider Obstetrics & Gynecology
DX: O36.8190 Decreased fetal movements, unspecified trimester, not applicable or unspecified (principal); O99.330 Smoking (tobacco) complicating pregnancy, unspecified trimester; F17.290 Nicotine dependence, other tobacco product, uncomplicated; Z3A.00 Weeks of gestation of pregnancy not specified
CPT/HCPCS: 36415; 59050; 80053; 83615; 85027; 93005; 99218; G0378

== ENCOUNTER → 2022-07-04 | Outpatient (CLI) | payer MEDICAID, SELFPAY | END | disposition home or self-care (01) | LOC: LABSPEC 11:55 | PROVIDERS: Visit Provider Obstetrics & Gynecology | DX: Z36.85 Encounter for antenatal screening for Streptococcus B (principal) | CPT/HCPCS: 87081 ==

== ENCOUNTER 2022-07-11 09:25 | Inpatient (IN) | payer MEDICAID, SELFPAY ==
[2022-07-11] VITALS (11 sets, daily range): BP systolic 110–132; BP diastolic 56–84; PULSE 60–71; RESP 16–17; TEMP 36.5–36.7; O2SAT 97–100; BMI 36.2
[2022-07-11 10:39] LABS: Bacteria 0 SEEN /hpf (None Seen); Mucous, Urine 0 SEEN /hpf (<or=2+); Red Blood Cells-Urine 0 SEEN /hpf (0-5); White Blood Cells 0 SEEN /hpf (0-5)
[2022-07-11 10:41] LABS: Color, Urine Yellow (Yellow); Glucose, Dipstick Normal (Normal); Ketone-Dipstick Negative (Negative); Leukocyte Esterase-Dipstick 25 /ul (Negative); Nitrite-Dipstick Negative (Negative); Occult Blood-Urine Negative /ul (Negative); Protein-Dipstick Negative (Negative); Urine Bilirubin Dipstick Negative (Negative); Urine Clarity Clear (Clear); Urine Urobilinogen Normal (Normal)
[2022-07-11 10:42] LABS: Squamous Epithelial Cells - UA 0-5 SEEN /hpf (5-10)
[2022-07-11 10:54] LABS: Protein, Urine (Random) < 6.0 mg/dL (<11.9); Protein:Creat Ratio 286 mg/g CRE (0-200)
[2022-07-11 10:56] LABS: Amphetamine Urine VISTA NEGATIVE (<1000 ng/mL); Barbiturate Urine VISTA NEGATIVE (< 200 ng/mL); Benzodiazepine Urine VISTA NEGATIVE (< 200 ng/mL); Cocaine Urine VISTA NEGATIVE (< 300 ng/mL); Ecstacy Urine VISTA NEGATIVE (< 500 ng/mL); Methadone Urine VISTA NEGATIVE (< 300 ng/mL); PCP Urine VISTA NEGATIVE (< 25 ng/mL); THC Urine VISTA POSITIVE (< 50 ng/mL); Vista UDS pH Range 7
[2022-07-11] MEDS: Lactated Ringers 1,000 ML 150 ML IV (11:20)
[2022-07-11] MEDS: Famotidine 200 MG/20 ML MDV 20 MG in 0.9% Normal Saline (Pres. free 8 ML 300 MG IV (11:26)
[2022-07-11 11:38] LABS: Absolute Lymphocyte Count 1.55 X10^3/uL (0.83-4.51); Absolute Neutrophil Count 8.3 X10^3/uL (2.0-7.7); Basophil# 0.03 X10^3/uL; Basophil% 0.3 % (0-1); Eosinophil# 0.07 X10^3/uL; Eosinophils% 0.6 % (0-5); Hematocrit 32.8 % (37-47); Hemoglobin 10.8 g/dL (12.0-15.0); Lymphocyte # 1.55 X10^3/ul (0.83-4.51); Lymphocyte % 14.4 % (19-41); Mean Corp Hgb Conc 32.9 g/dL (32-36); Mean Corpuscular Hgb 29.3 pg (27.0-32.0); Mean Corpuscular Volume 88.9 fL (81-99); Mean Platelet Vol. 10.8 fl (6.2-12.0); Monocyte# 0.76 X10^3/uL; Monocyte% 7.1 % (0-10); NRBC Flagged by Analyzer 0 % (0-5); Neutrophil # 8.26 X10^3/uL (2.7-7.7); Neutrophil % 76.6 % (47-70); Platelet Count 350 K/mm3 (150-450); RBC Distribution Width CV 12.6 % (11.6-14.6); RBC Distribution Width SD 40.8 fl (35.1-43.9); Red Blood Count 3.69 M/mm3 (4.2-5.4); White Blood Count 10.8 K/mm3 (4.4-11.0)
[2022-07-11 13:33] LABS: AST(SGOT) 16 U/L (15-37); Alanine Aminotransfer ALT/SGPT 16 U/L (13-56); Creatinine, Serum 0.56 mg/dL (0.55-1.02); EST Glomerular Filtration Rate 137 mL/min (>60); Est Glom Filt Rate - Afr Amer 166 mL/min (>60); Estimated Creatinine Clearance 129.15 ml/min; Uric Acid 3.8 mg/dL (2.6-6.0)
[2022-07-11] MEDS: Lactated Ringers 1,000 ML 999 ML IV (16:00)
[2022-07-11] MEDS: Acetaminophen 500 MG Tablet 1000 MG PO ×2 (16:26→22:41)
[2022-07-11] MEDS: Sodium Citrate/Citric Acid 30 ML UDC PO (17:09)
--- NOTE | 2022-07-11 17:09 | HP.PCM.OB_ITS ---
History and Physical Date of Admission: 07/11/22 Chief complaint: Oligohydramnios History present illness: 27-year-old G4, P2 at 37 weeks and 1 day with GUANAKO 07/31/2022 arrives for primary section for breech and oligohydramnios. Denies headache, visual changes, chest pain, shortness of breath, nausea vomit, right upper quadrant p ain. Patient states good movement. is complicated by breech, oligohydramnios, chronic hypertension Obstetric history: G1: 37-week female 6 pounds 10 ounces G2: 36-week breech female 6 pounds 2 ounces G3: SAB G4: Current Past medical history: Chronic hypertension Medications: Labetalol 200 mg twice daily Past surgical history: Dilation and curettage, tonsils and adenoids, arm surgery, wisdom teeth extraction Allergies: Hydrocodone Social history: Denies smoking, alcohol use, drug use Family history: Denies history DVT or PE Review of systems: Besides above pertinent positives a full review of systems was performed and found to be negative Physical exam: Vitals: Blood pressure 110/77 pulse 66 respiratory rate 17 temperature 98 SPO2 98% on room air General: Normal-appearing no acute distress HEENT: Normocephalic/atraumatic no cervical lymphadenopathy Cardiac/respiratory: No use accessory muscles, nonlabored breathing Abdomen: Soft, nontender, gravid Extremities: No peripheral edema normal peripheral pulses Psych: Normal affect normal demeanor nonpressured speech Labs: White blood cell count 10.8 hemoglobin 10.8 hematocrit 32.8% platelets 350. Creatinine 0.56 AST 16 ALT 16 urine protein creatinine ratio 0.28. Blood type O+ antibody negative Assessment plan: 27-year-old at 37 weeks and 1 day with breech presentation and oligohydramnios in need of primary section. Patient understands the risks of the procedure include but are not limited to visceral or vascular injury, prolonged hospitalization, blood loss and need for transfusion, reoperation. Patient state understanding wish to proceed. All questions were answered and consent was signed. Chronic hypertension, HELLP labs within normal limits. We will continue to monitor. For 2 g Ancef and 500 mg of azithromycin
[2022-07-11] MEDS: Cefazolin 2 GM in 0.9% Normal Saline 100 ML IV (17:15)
--- NOTE | 2022-07-11 18:03 | OP.PCM_ITS ---
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 Normal uterus, tubes, and ovaries. Consent: Patient noted to have oligohydramnios and breech presentation at term for primary section Via Pfannenstiel incision. Patient understands the risk of the procedure include but are not limited to visceral vascular injury, prolonged hospitalization, blood loss need for transfusion, reoperation. Patient state understanding wish to proceed. All questions were answered and consent was signed. Procedure: Patient brought back to the OR where spinal anesthesia was found to be adequate. 2 g of Ancef and 500 mg of azithromycin were given for infection prophylaxis. Patient was prepared and draped supine position with leftward tilt. A Pfannenstiel incision was made at the skin with a scalpel. The incision was carried down to the fascia with a scalpel. The fascia was excised and extended laterally. Rectus muscle was dissected at the midline down to the level of the pubic symphysis. Preperitoneal fatty tissue was noted and peritoneum was entered bluntly. Peritoneum was extended superiorly and inferiorly with good visualization of bladder. Bladder blade was inserted and vesicouterine peritoneum was identified. Low transverse hysterotomy was made. Hand was placed into the incision, bladder blade was removed, and baby was delivered in standard breech fashion. Cord was clamped and cut. Baby was handed off to nursing. Placenta was delivered via cord traction and fundal massage. IV oxytocin was initiated in order to facilitate uterine contractions. Uterus was exteriorized and wiped out with dry laparotomy sponge in order to remove remaining placental membranes. Uterus was closed in continuous running fashion. Second layer was performed. [id number] sutures were used for hemostasis. Uterus was placed back in the abdominal cavity and good hemostasis was noted. Lisseth was placed over the hysterotomy. Good hemostasis was noted. Fascia was closed in a continuous running fashion with PDS suture. Subcutaneous irrigation was performed. Good hemostasis was noted. Skin was closed in a subcuticular fashion. Good hemostasis was noted. All counts were correct x2. Patient tolerated the procedure well and was brought to recovery in a stable condition.
[2022-07-11] MEDS: Oxytocin 15 Units/NS 250ml 15 UNITS/250 ML IV.SOLN 83 UNITS IV (18:30)
[2022-07-11] MEDS: HYDROmorphone 1 MG/ML Syringe IV (18:44)
[2022-07-11] MEDS: Ketorolac 30 MG/ML Syringe IV (18:46)
[2022-07-11] MEDS: Lactated Ringers 1,000 ML 100 ML IV (21:31)
[2022-07-12] VITALS (9 sets, daily range): BP systolic 93–127; BP diastolic 47–72; PULSE 64–676; RESP 15–18; TEMP 36.3–37.2; O2SAT 97–100
[2022-07-12] MEDS: Ketorolac 30 MG/ML Syringe IV ×3 (00:03→13:26)
[2022-07-12] MEDS: 0.9% Saline Lock 10 ML Syringe IV ×4 (00:03→13:27)
[2022-07-12] MEDS: Acetaminophen 500 MG Tablet 1000 MG PO ×4 (04:46→23:46)
[2022-07-12 05:06] LABS: Hematocrit 26.3 % (37-47); Hemoglobin 8.4 g/dL (12.0-15.0); Mean Corp Hgb Conc 31.9 g/dL (32-36); Mean Corpuscular Hgb 28.8 pg (27.0-32.0); Mean Corpuscular Volume 90.1 fL (81-99); Mean Platelet Vol. 10.4 fl (6.2-12.0); Platelet Count 257 K/mm3 (150-450); RBC Distribution Width CV 12.6 % (11.6-14.6); RBC Distribution Width SD 40.9 fl (35.1-43.9); Red Blood Count 2.92 M/mm3 (4.2-5.4); White Blood Count 11.3 K/mm3 (4.4-11.0)
--- NOTE | 2022-07-12 06:35 | PCM.PN.OB ---
Subjective Subjective No overnight complaints. Denies headache, vision changes, chest pain, shortness of breath, nausea vomiting, right upper quadrant pain. Objective Data Objective Data Vital Signs: Vital Signs Temp Pulse Resp BP Pulse Ox O2 Del Method 98.9 F 73 18 116/69 99 Room Air 07/12/22 04:47 07/12/22 05:24 07/12/22 05:24 07/12/22 04:47 07/12/22 05:24 07/12/22 05:24 Oxygen Delivery Method Room Air Weight: 211 lb Body Mass Index (BMI) 36.2 Intake & Output: Intake and Output for Last 24 Hours 07/10/22 07/11/22 07/12/22 23:59 23:59 23:59 Intake Total 2723.33 / 2723.33 Output Total 725 / 725 350 / 350 Balance -350 / -350 Lab / Micro Data Result Diagrams: 07/12/22 05:00 07/11/22 11:20 Labs: Laboratory Results - last 24 hr 07/11/22 10:20: U Random Total Protein < 6.0, Urine Creatinine 18.20, Protein/Creatinin Ratio 286 H 07/11/22 10:20: Urine Color Yellow, Urine Clarity Clear, Urine pH 7.0, Ur Specific [place] 1.010, Urine Protein Negative, Urine Glucose (UA) Normal, Urine Ketones Negative, Urine Occult Blood Negative, Urine Nitrite Negative, Urine Bilirubin Negative, Urine Urobilinogen Normal, Ur Leukocyte Esterase 25 H, Urine RBC 0 SEEN, Urine WBC 0 SEEN, Ur Squamous Epith Cells 0-5 SEEN, Urine Bacteria 0 SEEN, Urine Mucus 0 SEEN 07/11/22 10:20: Urine Opiates Screen NEGATIVE, Urine Methadone Screen NEGATIVE, Ur Barbiturates Screen NEGATIVE, Ur Phencyclidine Scrn NEGATIVE, Ur Amphetamines Screen NEGATIVE, MDMA (Ecstasy) Screen NEGATIVE, U Benzodiazepines Scrn NEGATIVE, Urine Cocaine Screen NEGATIVE, U Cannabinoids Screen POSITIVE H, Ur Drug Screen Comment 07/11/22 11:20: WBC 10.8, RBC 3.69 L, Hgb 10.8 L, Hct 32.8 L, MCV 88.9, MCH 29.3, MCHC 32.9, RDW Std Deviation 40.8, RDW Coeff of Roverto 12.6, Plt Count 350, MPV 10.8, Immature Gran % (Auto) 1.000 H, Neut % (Auto) 76.6 H, Lymph % (Auto) 14.4 L, [place] % (Auto) 7.1, Eos % (Auto) 0.6, Baso % (Auto) 0.3, Absolute Neuts (auto) 8.3 H, Absolute Lymphs (auto) 1.55, Nucleated RBC % 0 07/11/22 11:20: Blood Type O POSITIVE, Antibody Screen NEGATIVE 07/11/22 11:20: Creatinine 0.56, Estim Creat Clear Calc 129.15, Est GFR (MDRD) Af Amer 166, Est GFR (MDRD) Non-Af 137, Uric Acid 3.8, AST 16, ALT 16 07/12/22 05:00: WBC 11.3 H, RBC 2.92 L, Hgb 8.4 L, Hct 26.3 L, MCV 90.1, MCH 28.8, MCHC 31.9 L, RDW Std Deviation 40.9, RDW Coeff of Roverto 12.6, Plt Count 257, MPV 10.4 Physical Exam Const alert, oriented x3, no apparent distress, average body habitus, healthy appearing and well nourished HEENT normocephalic and moist oral mucous membranes Eyes PERRL Neck full ROM Resp normal respiratory effort, no retractions and no use of accessory muscles GI GI Narrative: Soft, nontender, bandage clean dry and intact Extremity normal to inspection, full ROM and no clubbing, cyanosis or edema Neuro moves all extremities and no focal motor deficits Psych mental status grossly normal, affect normal, speech normal and activity/motor behavior normal Assessment & Plan (1) delivery delivered: PLAN: Postoperative day 1 status post primary section for breech and oligohydramnios at 37 weeks. Formula feeding. Pain well controlled. Chronic hypertension previously on 200 mg labetalol twice daily, held at this time. We will continue to monitor. Likely home tomorrow
[2022-07-12] MEDS: Senna/Docusate Sodium 1 Tablet PO (11:11)
[2022-07-12] MEDS: HYDROmorphone 0.5 MG/0.5 ML SYRINGE IV (11:12)
--- NOTE | 2022-07-12 16:43 | CPS ---
did not give pt incentive. it was ordered yesterday and not started, patient is up and moving around today and does not need it.
[2022-07-12] MEDS: oxyCODONE 5 MG Tablet PO (18:10)
--- NOTE | 2022-07-12 18:51 | NURSING ---
Reviewed and agreed with Dillan WOODS charting.
[2022-07-12] MEDS: Ibuprofen 600 MG Tablet PO (19:26)
[2022-07-13] MEDS: Ibuprofen 600 MG Tablet PO ×2 (01:22→07:50)
[2022-07-13 02:50] VITALS: BP 112/52; PULSE 62; RESP 16; TEMP 36.5; O2SAT 97
[2022-07-13] MEDS: Acetaminophen 500 MG Tablet 1000 MG PO ×2 (05:21→11:49)
--- NOTE | 2022-07-13 06:14 | PCM.PN.OB ---
Subjective Subjective Feeling sore but pain well controlled. Lochia minimal. Formula feeding. No headache or vision changes. Objective Data Objective Data Vital Signs: Vital Signs Temp Pulse Resp BP Pulse Ox O2 Del Method 97.7 F L 62 16 112/52 L 97 Room Air 07/13/22 02:50 07/13/22 02:50 07/13/22 02:50 07/13/22 02:50 07/13/22 02:50 07/13/22 02:50 Oxygen Delivery Method Room Air Weight: 95.708 kg Body Mass Index (BMI) 36.2 Intake & Output: Intake and Output for Last 24 Hours 07/11/22 07/12/22 07/13/22 23:59 23:59 23:59 Intake Total 2723.33 / 2723.33 Output Total 725 / 725 350 / 350 Balance 1997.33 -350 / -350 Lab / Micro Data Attestation: I reviewed the patient's lab results. Result Diagrams: 07/12/22 05:00 07/11/22 11:20 Physical Exam Const alert, oriented x3 and no apparent distress HEENT normocephalic Head and Scalp: atraumatic Neck full ROM Resp normal respiratory effort Cardio regular rate GI normal to inspection, nondistended, normoactive bowel sounds GI Narrative: Uterus 2 cm below umbilicus, dressing clean and dry Back/Spine normal ROM Extremity normal to inspection Extremity Narrative: Minimal pedal edema Neuro no focal motor deficits and no sensory deficits noted Psych mental status grossly normal and affect normal Assessment & Plan (1) delivery delivered: PLAN: Postop day 2 status post section for oligohydramnios and breech position. Complicated by chronic hypertension, was on labetalol, held with normotension. Will continue to hold on home-going. Acute on chronic anemia secondary to surgical blood loss. Iron supplement on home-going. Formula feeding. Discharge home today with 1 week BP check, 2-week postop, 6-week . (2) Chronic hypertension: (3) Other acute postprocedural pain:
--- NOTE | 2022-07-13 06:17 | DCINST_ITS ---
Discharge Instructions Diet Discharge Diet: No restrictions Activity Discharge Activity: Return to Normal Activity and May Shower May resume sexual activity in: 4-6 weeks Weight Bearing Status: Weight bearing as tolerated Lifting Restrictions: No greater than 25 pounds Dressing / Incision Call your doctor if your incision/area has: Continuous Slow Oozing, Increased Redness and Swelling at the incision site Call your doctor if you observe: Fever of 101 or Higher, Change in Color, Inability to urinate, Using more than 1 pad per hour, Shortness of breath, Dizziness, Swelling in the ankles, Chest pain and Calf discomfort Remove Dressing in: 1 week Cleanse incision/area with: Soap & Water and Keep Dressing Clean & Dry Follow Up Care Please Follow Up With: Jhonatan Villaseñor MD When: 1 week BP check, 2 week post op, 6-week visit Test Results: Test results from this visit will be discussed in further detail at your follow- up appointment, if applicable. Discharge Plan Admission Admit Date/Time: 07/11/22 09:25 Primary Reason for Your Visit: section Attending Provider: Jhonatan Villaseñor Primary Care Provider: Fuentes Latif Discharge Orders/Prescriptions Prescriptions: New oxycodone 5 mg Tablet 5 mg PO Q6H PRN (Reason: pain) 4 Days Qty: 20 0RF Discontinued labetalol 100 mg Tablet 100 mg Referrals / Follow Up: Fuentes Latif DO [Primary Care Provider] - Disposition Disposition (needs filled in before D/C Order can be placed): Home, Self Care
[2022-07-13] MEDS: oxyCODONE 5 MG Tablet PO (06:28)
[2022-07-13 07:52] VITALS: BP 134/76; PULSE 67; RESP 16; TEMP 36.5; O2SAT 97
[2022-07-13] MEDS: Senna/Docusate Sodium 1 Tablet PO (10:11)
[2022-07-13 12:39] VITALS: BP 135/71; PULSE 82; RESP 16; TEMP 36.8; O2SAT 96
== END 2022-07-13 13:05 | disposition home or self-care (01) | DRG 540 ==
PROVIDERS: Admitting Provider Student in an Organized Health Care Education/Training Program; PCP Family Medicine; Visit Provider Obstetrics & Gynecology
DX: O32.1XX0 Maternal care for breech presentation, not applicable or unspecified (principal); D62 Acute posthemorrhagic anemia; O41.03X0 Oligohydramnios, third trimester, not applicable or unspecified; Z3A.37 37 weeks gestation of pregnancy; O10.02 Pre-existing essential hypertension complicating childbirth; O99.02 Anemia complicating childbirth; Z37.0 Single live birth
CPT/HCPCS: 59025; 59050; 80307; 81001; 82565; 82570; 84156; 84450; 84460; 84550; 85025; 85027; 86850; 86900; 86901; 99218; J7120; A4216; G0378; J2405; J3490